=== PATIENT | male | born 1995 | race Caucasian/White ===

== ENCOUNTER 2017-07-13 11:52 | Emergency (ER) | payer MEDICAID ==
[~2017-07-13] VITALS: Ht 180.3 cm; Wt 65.8 kg
[2017-07-13 12:23] LABS: Urine RBC None Seen /hpf (0 - 3)
[2017-07-13 12:29] LABS: Urine Bilirubin Negative (Negative); Urine Blood Negative /uL (Negative); Urine Color Yellow (Yellow); Urine Glucose Normal (Normal); Urine Ketone TRACE (Negative); Urine Mucus FEW (None Seen); Urine Nitrite Negative (Negative); Urine Urobilinogen Normal (Negative); Urine pH 7.5 (5.0-8.0)
[2017-07-13 12:46] LABS: Basophils # (auto) 0 uL; Basophils % (auto) 0.5 % (0.0-2.0); CONDITION Y; Eosinophils # (auto) 0.1 uL; Eosinophils % (auto) 1.7 % (0.0-7.0); Hematocrit 52.1 % (41.0-53.0); Hemoglobin 17.5 g/dL (13.5-17.5); Lymphocytes % (auto) 22.3 % (10.0-50.0); Mean Corpuscular Hemoglobin 30.4 pg (28.0-32.0); Mean Corpuscular Hgb Conc. 33.6 g/dL (32.0-36.0); Mean Corpuscular Volume 90.5 fL (80.0-100.0); Mean Platelet Volume 10.4 fL (6.9-10.8); Monocytes # (auto) 0.5 uL; Monocytes % (auto) 5.3 % (0.0-12.0); Neutrophils # (auto) 6.2 uL; Neutrophils % (auto) 70.2 % (37.0-80.0); Platelet Count (auto) 195 10^3/uL (140-450); White Blood Cell 8.8 10^3/uL (4.4-10.8)
[2017-07-13 12:58] LABS: Albumin 4.5 g/dL (3.4-5.0); BUN/Creatinine Ratio 6.5; Bilirubin, Total 0.8 mg/dL (0.2-1.0); Calcium 10.1 mg/dL (8.5-10.1); Potassium 3.8 mmol/L (3.5-5.1); Total Protein 8.2 g/dL (6.4-8.2)
[2017-07-13 18:15] VITALS: BP 124/76
[2017-07-13] MEDS ORDERED: SODIUM CHLORIDE 0.9% 1,000 ML IV ONE (18:15)
[2017-07-13] MEDS ORDERED: ALUM & MAG HYDROX-SIMETH LIQ(MAALOX) 30 ML PO ONE (18:15)
[2017-07-13] MEDS ORDERED: ONDANSETRON HCL 4 MG/2 ML VIAL IV ONE (18:15)
[2017-07-13] MEDS ORDERED: DONNATAL 5ml ORAL Elix (BELLADONNA ALK-PHENOBARB) PO ONE (18:15)
[2017-07-13] MEDS ORDERED: LIDOCAINE VISCOUS 2% 15ML UD PO ONE (18:15)
== END 2017-07-13 19:56 | disposition home or self-care (01) ==
LOC: ER 11:52
DX: K29.70 Gastritis, unspecified, without bleeding (principal); F17.210 Nicotine dependence, cigarettes, uncomplicated
CPT/HCPCS: 36415; 74000; 80053; 81001; 85025; 96361; 96374; 99285; J2405; J7030

== ENCOUNTER 2022-05-14 10:40 | Emergency (ER) | payer MEDICAID ==
[~2022-05-14] VITALS: Ht 180.3 cm; Wt 65.9 kg
[2022-05-14 11:07] VITALS: BP 126/76
[2022-05-14] MEDS ORDERED: METH4PAK PO (12:22)
[2022-05-14] MEDS ORDERED: AZIT1POW PO (12:22)
== END 2022-05-14 12:59 | disposition home or self-care (01) ==
LOC: ER 10:40
DX: U07.1 COVID-19 (principal); R07.89 Other chest pain; F17.210 Nicotine dependence, cigarettes, uncomplicated; Z79.2 Long term (current) use of antibiotics; Z79.899 Other long term (current) drug therapy; Z88.0 Allergy status to penicillin
CPT/HCPCS: 36415; 71046

== ENCOUNTER 2025-02-16 11:07 | Emergency (ER) | payer MEDICAID ==
[~2025-02-16] VITALS: Ht 180.3 cm; Wt 82.9 kg
[~2025-02-16 11:07] MED LIST: AZIT1POW PO; METH4PAK PO
[2025-02-16 12:14] VITALS: BP 130/75; PULSE 86; RESP 16; TEMP 98.2; O2SAT 99
--- NOTE | 2025-02-16 13:05 | DVH ---
CLINICAL INDICATION: trauma TECHNIQUE: 4 radiographic views of the left shoulder were obtained. Comparison: None FINDINGS/IMPRESSION: There is no evidence of acute fracture or dislocation. The visualized joint space is well maintained. The alignment is anatomical. There is no radiopaque foreign body.
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
[2025-02-16] MEDS ORDERED: IBU600T PO (14:59)
== END 2025-02-16 14:59 | disposition home or self-care (01) ==
LOC: ER 11:07
DX: S46.912A Strain of unspecified muscle, fascia and tendon at shoulder and upper arm level, left arm, initial encounter (principal); F17.210 Nicotine dependence, cigarettes, uncomplicated; Z79.899 Other long term (current) drug therapy; Z88.0 Allergy status to penicillin; V29.99XA Rider (driver) (passenger) of other motorcycle injured in unspecified traffic accident, initial encounter; Y93.89 Activity, other specified; Y92.89 Other specified places as the place of occurrence of the external cause; Y99.8 Other external cause status
CPT/HCPCS: 73030